=== PATIENT | male | born 1980 | race Two or more races ===

== ENCOUNTER 2025-04-05 17:35 | Inpatient (IN) | payer MEDICAID, OTHER ==
[~2025-04-05] VITALS: Ht 157.5 cm; Wt 61.4 kg
[~2025-04-05 17:35] MED LIST: ACET-2605 GT; ALPR0.5T8 GT; ASCO500T10 GT; CHOL100034 GT; DIPH25TA62 PO; DOCU100T2 GT; FERR220S16 GT; LACT-209 GT; LACT1CAP61 GT; LEVE100S GT; MIDO5TAB5 GT; POLY17PO4 GT; SENN-261 GT; VALP250S22 GT
[2025-04-05] MEDS ORDERED: MAGN400O6 GT (18:11)
[2025-04-05] MEDS ORDERED: DIATR MEGLU/DIATRIZOATE SODIUM 30 ML BOTTLE ONE (19:33)
[2025-04-06 00:44] LABS: BASOPHILS % (AUTO) 0.7 % (0.0-2.0); EOSINOPHILS # (AUTO) 0.2 K/uL (0.0-0.7); EOSINOPHILS % (AUTO) 3.9 % (0.0-7.0); HEMOGLOBIN 12.8 g/dL (12.5-16.3); LYMPHOCYTES # (AUTO) 2.1 K/uL (0.8-4.8); LYMPHOCYTES % (AUTO) 35.1 % (20.5-51.5); MEAN CORPUSCULAR HEMOGLOBIN 29.8 uug (23.8-33.4); MEAN CORPUSCULAR HGB CONC 33 g/dL (32.5-36.3); MEAN CORPUSCULAR VOLUME 90.7 fL (73.0-96.2); MONOCYTES # (AUTO) 0.3 K/uL (0.1-1.30); MONOCYTES % (AUTO) 5.2 % (0.0-11.0); NEUTROPHILS # (AUTO) 3.3 K/uL (1.8-8.9); NEUTROPHILS % (AUTO) 55.1 % (38.5-71.5); PLATELET COUNT (AUTO) 365 K/uL (152-348); RED CELL DISTRIBUTION WIDTH 14.7 % (12.1-16.2); WHITE BLOOD COUNT (AUTO) 5.9 K/uL (3.6-10.2)
[2025-04-06 00:45] LABS: DIFFERENTIAL COMMENT 1
[2025-04-06 00:52] LABS: CARBON DIOXIDE 29 mmol/L (21-32); CHLORIDE 106 mmol/L (98-107); CREATININE 0.6 mg/dL (0.6-1.3); GLUCOSE 142 mg/dL (74-106); POTASSIUM 3.8 mmol/L (3.5-5.1); SODIUM SERUM 141 mmol/L (136-145); UREA NITROGEN, BLOOD 18 mg/dL (7-18)
[2025-04-06 00:58] LABS: ALANINE AMINOTRANSFERASE 36 U/L (16-63); ALBUMIN 3.1 g/dL (3.4-5.0); ALKALINE PHOSPHATASE 94 U/L (50-136); ASPARTATE AMINOTRANSFERASE 24 U/L (15-37); BILIRUBIN,TOTAL 0.3 mg/dL (0.2-1.0); TOTAL PROTEIN, SERUM 7.2 g/dL (6.4-8.2)
[2025-04-06] MEDS: IV NS 1000 ML 1,000 ML IV ONE (01:02)
[2025-04-06] MEDS ORDERED: ATROPINE SULFATE 1 MG/10 ML DISP.SYRIN ONE (01:47)
[2025-04-06] MEDS: ATROPINE SULFATE 1 MG/10 ML DISP.SYRIN IV ONE (01:57)
[2025-04-06] MEDS ORDERED: ACETAMINOPHEN 325 MG TABLET PO PRN (02:45)
[2025-04-06] MEDS ORDERED: ONDANSETRON 4 MG/2 ML VIAL IV PRN (02:45)
[2025-04-06] MEDS ORDERED: MORPHINE SULFATE 2 MG/1 ML DISP.SYRIN IVP PRN (02:45)
[2025-04-06] MEDS ORDERED: MIDODRINE HCL 5 MG TABLET ONE (02:56)
[2025-04-06] MEDS: MIDODRINE HCL 5 MG TABLET PO SCH (03:00)
[2025-04-06] MEDS: IV NS 1000 ML 1,000 ML IV SCH (03:00)
[2025-04-06 07:09] LABS: *BILIRUBIN,URIN NEGATIVE (NEGATIVE); *BLOOD, URINE NEGATIVE (NEGATIVE); *CLARITY,URINE CLOUDY (CLEAR); *COLOR,URINE YELLOW (YELLOW); *KETONES,URINE TRACE (NEGATIVE); *PROTEIN,URINE 1+ (NEGATIVE); *UROBILINOGEN,URINE 0.2 E.U./dl (NORMAL); LEUKOCYTE ESTERASE ,URINE 1+ (NEGATIVE); NITRITE, URINE NEGATIVE (NEGATIVE); UGLUCOSE NEGATIVE (NEGATIVE)
[2025-04-06 07:38] LABS: BACTERIA,URINE FEW /HPF (NONE SEEN); SQUAMOUS EPITHELIAL CELL,UR FEW /HPF (NONE SEEN); WBC,URINE 20-50 /HPF (0-3)
[2025-04-06 10:26] VITALS: BP 96/51; TEMP 98.6; O2SAT 97
[2025-04-06] MEDS ORDERED: ACETAMINOPHEN 325 MG TABLET GT PRN (11:03)
[2025-04-06] MEDS: HEPARIN SODIUM,PORCINE 5,000 UNITS/ML VIAL SQ SCH (11:05)
[2025-04-06] MEDS: MIDODRINE HCL 5 MG TABLET GT SCH (13:50)
[2025-04-06] MEDS ORDERED: ALPRAZOLAM 0.5 MG TABLET GT PRN (14:45)
[2025-04-06] MEDS ORDERED: SENNOSIDES 1 TABLET GT PRN (14:45)
[2025-04-06] MEDS: OSMOLITE 1.2 CAL 1,000 ML LIQUID GT PRN (17:48)
[2025-04-06] MEDS: VALPROIC ACID 250 MG/5 ML LIQUID UDC GT SCH (17:57)
[2025-04-06] MEDS: IV NS 1000 ML 1,000 ML IV PRN (18:05)
[2025-04-06 19:40] VITALS: BP 111/69; TEMP 97.8; O2SAT 95
[2025-04-06] MEDS: levETIRAcetam 500 MG/5 ML LIQUID UDC GT SCH (21:26)
[2025-04-06] MEDS ORDERED: MIDODRINE HCL 5 MG TABLET GT SCH (22:00)
[2025-04-07 06:34] LABS: BASOPHILS % (AUTO) 0.6 % (0.0-2.0); EOSINOPHILS # (AUTO) 0.2 K/uL (0.0-0.7); EOSINOPHILS % (AUTO) 3.6 % (0.0-7.0); HEMOGLOBIN 11.6 g/dL (12.5-16.3); LYMPHOCYTES # (AUTO) 2.9 K/uL (0.8-4.8); LYMPHOCYTES % (AUTO) 45.2 % (20.5-51.5); MEAN CORPUSCULAR HGB CONC 33 g/dL (32.5-36.3); MEAN CORPUSCULAR VOLUME 90.6 fL (73.0-96.2); MONOCYTES # (AUTO) 0.4 K/uL (0.1-1.30); MONOCYTES % (AUTO) 5.6 % (0.0-11.0); NEUTROPHILS # (AUTO) 2.8 K/uL (1.8-8.9); PLATELET COUNT (AUTO) 353 K/uL (152-348); RED BLOOD CELL COUNT(AUTO) 3.87 MIL/uL (4.06-5.63); RED CELL DISTRIBUTION WIDTH 14.8 % (12.1-16.2); WHITE BLOOD COUNT (AUTO) 6.3 K/uL (3.6-10.2)
[2025-04-07 06:43] VITALS: BP 96/64; TEMP 97.9; O2SAT 98
[2025-04-07 06:52] LABS: DIFFERENTIAL COMMENT 1
[2025-04-07 06:53] LABS: ALANINE AMINOTRANSFERASE 25 U/L (16-63); ALBUMIN 2.7 g/dL (3.4-5.0); ALKALINE PHOSPHATASE 79 U/L (50-136); ASPARTATE AMINOTRANSFERASE 15 U/L (15-37); BILIRUBIN,TOTAL 0.2 mg/dL (0.2-1.0); CALCIUM 8.6 mg/dL (8.5-10.1); CARBON DIOXIDE 27 mmol/L (21-32); CHLORIDE 106 mmol/L (98-107); CREATININE 0.5 mg/dL (0.6-1.3); GLUCOSE 79 mg/dL (74-106); PHOSPHOROUS 3.9 mg/dL (2.5-4.9); POTASSIUM 3.8 mmol/L (3.5-5.1); SODIUM SERUM 141 mmol/L (136-145); TOTAL PROTEIN, SERUM 6.4 g/dL (6.4-8.2); UREA NITROGEN, BLOOD 12 mg/dL (7-18)
[2025-04-07 11:32] VITALS: BP 102/57; TEMP 97.4; O2SAT 98
[2025-04-07 15:55] VITALS: BP 120/74; TEMP 98.9; O2SAT 97
[2025-04-07 19:35] VITALS: BP 93/61; TEMP 98.1; O2SAT 95
[2025-04-07] MEDS: AMOXICILLIN-CLAVUL 875-125MG TABLET PO SCH (21:44)
[2025-04-08] MEDS: IV LACTATED RINGERS SOLUTION 1,000 ML IV PRN (00:40)
[2025-04-08] MEDS: GUAIFENESIN/DEXTROMETHORPHAN 5 ML UDC PO PRN (00:50)
[2025-04-08] MEDS ORDERED: AMOXICILLIN-CLAVUL 875-125MG TABLET GT SCH (06:41)
[2025-04-08 07:22] VITALS: BP 100/61; TEMP 97.2; O2SAT 97
[2025-04-08 07:41] VITALS: BP 100/66; TEMP 97.5; O2SAT 98
[2025-04-08] MEDS: HEPARIN SODIUM,PORCINE 5,000 UNITS/ML VIAL SQ SCH (08:47)
[2025-04-08] MEDS: AMOXICILLIN-CLAVUL 875-125MG TABLET GT SCH (08:48)
[2025-04-08 12:00] VITALS: BP 100/72; TEMP 98.1; O2SAT 98
[2025-04-08] MEDS ORDERED: VANCOMYCIN FOR GT/NG USE GT SCH (13:00)
[2025-04-08] MEDS: VANCOMYCIN HCL 125 MG CAPSULE PO SCH (13:26)
[2025-04-08 14:19] VITALS: BP 107/65; TEMP 98.4; O2SAT 97
[2025-04-08 19:53] VITALS: BP 96/66; TEMP 97.5; O2SAT 92
[2025-04-09 04:36] VITALS: BP 102/69; TEMP 98.2; O2SAT 92
[2025-04-09 11:45] VITALS: BP 91/61; TEMP 97.4; O2SAT 99
[2025-04-09 16:00] VITALS: BP 97/65; TEMP 97.5; O2SAT 95
[2025-04-09 19:57] VITALS: BP 98/65; TEMP 97.6; O2SAT 93
[2025-04-10 04:47] VITALS: BP 100/70; TEMP 98; O2SAT 95
[2025-04-10 07:25] LABS: CALCIUM 8.4 mg/dL (8.5-10.1); CARBON DIOXIDE 27 mmol/L (21-32); CHLORIDE 104 mmol/L (98-107); CREATININE 0.5 mg/dL (0.6-1.3); GLUCOSE 97 mg/dL (74-106); POTASSIUM 3.9 mmol/L (3.5-5.1); SODIUM SERUM 139 mmol/L (136-145); UREA NITROGEN, BLOOD 7 mg/dL (7-18)
[2025-04-10 07:34] LABS: BASOPHILS % (AUTO) 0.5 % (0.0-2.0); EOSINOPHILS # (AUTO) 0.1 K/uL (0.0-0.7); EOSINOPHILS % (AUTO) 2.1 % (0.0-7.0); HEMATOCRIT 36.6 % (36.7-47.1); HEMOGLOBIN 11.9 g/dL (12.5-16.3); LYMPHOCYTES # (AUTO) 2.8 K/uL (0.8-4.8); LYMPHOCYTES % (AUTO) 40.8 % (20.5-51.5); MEAN CORPUSCULAR HEMOGLOBIN 29.6 uug (23.8-33.4); MEAN CORPUSCULAR HGB CONC 33 g/dL (32.5-36.3); MEAN CORPUSCULAR VOLUME 90.9 fL (73.0-96.2); MONOCYTES # (AUTO) 0.5 K/uL (0.1-1.30); MONOCYTES % (AUTO) 7.1 % (0.0-11.0); NEUTROPHILS # (AUTO) 3.4 K/uL (1.8-8.9); NEUTROPHILS % (AUTO) 49.5 % (38.5-71.5); PLATELET COUNT (AUTO) 339 K/uL (152-348); RED BLOOD CELL COUNT(AUTO) 4.02 MIL/uL (4.06-5.63); RED CELL DISTRIBUTION WIDTH 14.8 % (12.1-16.2); WHITE BLOOD COUNT (AUTO) 6.9 K/uL (3.6-10.2)
[2025-04-10 12:00] VITALS: BP 105/69; TEMP 97.6; O2SAT 98
[2025-04-10] MEDS ORDERED: VANC125C2 PO (14:24)
[2025-04-10] MEDS ORDERED: AMOX1TAB16 GT (14:24)
[2025-04-10] MEDS ORDERED: LACT-89 GT (14:24)
[2025-04-10] MEDS ORDERED: MIDO5TAB4 GT (14:24)
[2025-04-10 16:39] VITALS: BP 94/62; TEMP 97.8; O2SAT 99
[2025-04-10 19:00] VITALS: BP 99/66; TEMP 97.6; O2SAT 96
[2025-04-11] MEDS: GUAIFENESIN/DEXTROMETHORPHAN 5 ML UDC GT PRN (01:26)
[2025-04-11 06:16] VITALS: BP 106/73; TEMP 97.6; O2SAT 96
[2025-04-11 11:54] VITALS: BP 96/61; TEMP 97.3; O2SAT 93
[2025-04-11 16:20] VITALS: O2SAT 96
[2025-04-11 16:29] VITALS: BP 93/58; TEMP 97.2; O2SAT 97
[2025-04-11 16:30] VITALS: O2SAT 99
[2025-04-11] MEDS: ALBUTEROL SULFATE 2.5 MG/3 ML NEBU NEB PRN (16:46)
[2025-04-11 17:20] VITALS: BP 105/55; TEMP 98; O2SAT 97
== END 2025-04-11 21:20 | DRG 248 ==
LOC: ER 17:35 → TELE3 04-06 08:29 → MEDSURG3 04-06 09:10
PROVIDERS: ADMIT Internal Medicine; ATTEND Internal Medicine
PROC: 0DH67UZ Insertion of Feeding Device into Stomach, Via Natural or Artificial Opening (ICD-10-PCS; principal; 2025-04-06)
PROC: 05HC33Z Insertion of Infusion Device into Left Basilic Vein, Percutaneous Approach (ICD-10-PCS; 2025-04-07)
DX: A04.72 Enterocolitis due to Clostridium difficile, not specified as recurrent (principal); G93.40 Encephalopathy, unspecified; I95.89 Other hypotension; E44.0 Moderate protein-calorie malnutrition; I95.9 Hypotension, unspecified; N39.0 Urinary tract infection, site not specified; E88.09 Other disorders of plasma-protein metabolism, not elsewhere classified; G81.01 Flaccid hemiplegia affecting right dominant side; Z43.1 Encounter for attention to gastrostomy; B95.2 Enterococcus as the cause of diseases classified elsewhere; S06.9XAS Unspecified intracranial injury with loss of consciousness status unknown, sequela; X58.XXXS Exposure to other specified factors, sequela; R13.10 Dysphagia, unspecified; G40.909 Epilepsy, unspecified, not intractable, without status epilepticus; F20.9 Schizophrenia, unspecified; F39 Unspecified mood [affective] disorder; R00.1 Bradycardia, unspecified; Z79.899 Other long term (current) drug therapy; F09 Unspecified mental disorder due to known physiological condition; M62.81 Muscle weakness (generalized)
CPT/HCPCS: 36415; 71045; 74018; 84100; 84484; 85025; 87077; 87086; 93307; A4606; A4663; C1758; G0378; J0290; J0461; J1644; J7040; J7120; Q9963